=== PATIENT | male | born 1980 | race Caucasian/White ===

== ENCOUNTER 2017-08-15 07:51 | Emergency (ER) | payer SELFPAY ==
[2017-08-15] MEDS: SOD CHLORIDE 0.9% 1,000 ML IV (08:23)
[2017-08-15] MEDS: KETOROLAC 30 MG INJ IM (08:23)
[2017-08-15] MEDS: morphine 4 MG/ML VIAL IV (10:57)
[2017-08-15] MEDS: ONDANSETRON 4 MG INJ IV (10:57)
== END 2017-08-15 13:29 | disposition home or self-care (01) ==
LOC: FTE 07:51
DX: S42.212A Unspecified displaced fracture of surgical neck of left humerus, initial encounter for closed fracture (principal); S62.92XA Unspecified fracture of left hand, initial encounter for closed fracture; R55 Syncope and collapse; V28.9XXA Unspecified motorcycle rider injured in noncollision transport accident in traffic accident, initial encounter
CPT/HCPCS: 29125; 70450; 71045; 71100; 72170; 73030; 73060; 73130-LT; 73562; 96361; 96372; 96374; 96375; 99285-25